=== PATIENT | male | born 1995 ===

== ENCOUNTER 2023-05-20 14:16 | Outpatient (RCR) | payer OTHER ==
[~2023-05-20 14:16] MED LIST: CEPHALEXIN500 M1 PO
== END 2023-05-23 ==
LOC: WSOH
DX: S61.012D Laceration without foreign body of left thumb without damage to nail, subsequent encounter (principal); Y99.0 Civilian activity done for income or pay

== ENCOUNTER 2023-07-30 14:18 | Outpatient (RCR) | payer OTHER | END 2023-08-23 | LOC: WSOH | DX: S61.012D Laceration without foreign body of left thumb without damage to nail, subsequent encounter (principal); Y99.0 Civilian activity done for income or pay ==